=== PATIENT | female | born 1975 | race Hispanic/Latino ===

== ENCOUNTER 2022-05-12 22:09 | Emergency (ER) | payer SELFPAY ==
[2022-05-12] MEDS ORDERED: Morphine 4 MG/ML VIAL ONE (22:42)
[2022-05-12] MEDS ORDERED: Ondansetron PF 4 MG/2 ML Vial ONE (22:42)
[2022-05-12 23:08] LABS: Bilirubin Neg (Negative); Blood, Urine Negative (Negative); Clarity Clear (Clear); Glucose, Urine (Dipstick) Normal (Negative); Ketone, Urine 5 mg/dL (Negative); Leukocyte 25 (Negative); Nitrite Negative (Negative); Protein, Urine (Dipstick) Negative (Neg-Trace); Urobilinogen Normal mg/dL (Less than 2)
[2022-05-12 23:11] LABS: Hemoglobin 14.9 g/dL (12.0-15.5); Mean Corpuscular HGB CONC 33.9 g/dL (32.0-36.0); Mean Corpuscular Volume 85.6 fl (81.6-98.3); Mean Platelet Volume 9.1 fl (7.4-10.4); Platelet Count 428 10x3/uL (150-450); RBC Distribution Width 12.4 % (11.5-14.5); Red Blood Cell (RBC) Count 5.13 10x6/uL (3.90-5.03); White Blood Cell (WBC) Count 8.9 10x3/uL (3.5-10.5)
[2022-05-12 23:24] LABS: ALT (SGPT) 58 U/L (8-55); AST (SGOT) 52 U/L (5-34); Albumin 4.6 g/dL (3.5-5.0); Alkaline Phosphatase 97 U/L (40-110); Anion Gap 17 mmol/L (10-20); BHCG - Serum Negative (NEGATIVE); BUN (Urea Nitrogen) 11 mg/dL (7.0-18.7); Bilirubin, Total 0.5 mg/dL (0.2-1.2); Calc. Creatinine Clearance 0 mL/min (70-130); Calcium 9.5 mg/dL (7.8-10.44); Carbon Dioxide 21 mmol/L (22-29); Chloride 102 mmol/L (98-107); Globulin 3.7 g/dL (2.4-3.5); Glucose 130 mg/dL (70-105); Pregs Control Background? CLEAR/WHITE (CLR/WHITE); Pregs Control Bar Appear? YES (CONTROL BAR); Protein, Total 8.3 g/dL (6.0-8.3); Sodium 136 mmol/L (136-145)
[2022-05-12 23:39] LABS: RBC/HPF 0-3 HPF (0-3)
[2022-05-12 23:40] LABS: Bacteria/HPF 1+ HPF (None Seen); MDiff Complete? YES
[2022-05-12 23:43] LABS: Band 5 % (5-11); Eosinophils 1 % (0-10); Lymphocytes 45 % (21-51); Monocytes 9 % (0-10); Neutrophil 40 % (42-75); Nucleated RBC 1 % (0)
[2022-05-12 23:44] LABS: Platelet Morphology Comment Appears Adequate
[2022-05-12 23:45] LABS: RBC Morphology Normal
== END 2022-05-13 00:48 | disposition home or self-care (01) ==
LOC: CSHERS 22:09
DX: K80.20 Calculus of gallbladder without cholecystitis without obstruction (principal)
CPT/HCPCS: 74177; 80053; 81001; 84703; 85025; 96374; 96375; J2270; J2405